=== PATIENT | male | born 1985 | race Hispanic/Latino ===

== ENCOUNTER 2016-09-19 07:48 | Day surgery (SDC) | payer OTHER ==
[2016-09-19] VITALS (9 sets, daily range): BP systolic 124–132; BP diastolic 66–77; PULSE 62–84; RESP 12–16; O2SAT 95–99
[~2016-09-19] VITALS: Ht 165.1 cm; Wt 100.0 kg
[~2016-09-19 07:48] MED LIST: CeFAZolin Inj 2 GM in IV Premix 1 EACH IV ONE; Lactated Ringer's 1,000 ML IV SCH
[2016-09-19] MEDS ORDERED: Dexamethasone 4 mg/mL Inj ONE (07:49)
[2016-09-19] MEDS ORDERED: fentaNYL-PF 50 mCg/mL 2 mL Inj ONE (07:49)
[2016-09-19] MEDS ORDERED: Propofol 10,000 mCg/mL 20 mL Inj ONE (07:49)
[2016-09-19] MEDS ORDERED: MetoCLOpramide 5 mg/mL 2 mL Inj ONE (07:49)
[2016-09-19] MEDS ORDERED: Ondansetron 2 mg/mL 2 mL Inj ONE (07:49)
[2016-09-19] MEDS ORDERED: Lactated Ringer's 1,000 ML IV ONE (08:33)
[2016-09-19 09:00] LABS: Mean Corpuscular Hemoglobin 29.9 pg (27.0-35.0); Mean Corpuscular Volume 89.7 fL (81-100)
[2016-09-19] MEDS ORDERED: Lactated Ringer's 500 ML IV PRN (09:59)
[2016-09-19] MEDS ORDERED: Lactated Ringer's 1,000 ML IV SCH (09:59)
[2016-09-19] MEDS ORDERED: Bupivacaine-MPF 0.25% 30 mL Inj INJ ONE (09:59)
--- NOTE | 2016-09-19 09:59 | PCM.HPANE ---
Patient Data Surgeon Admitting Provider: Attending Provider:Slime Rose MD Primary Care Physician:Levar Other Provider:Anais Bourgeoisingham Anesthesia Reason for Visit Balanitis Ht/WT & BMI Height (Feet): 5 Height (Inches): 5 Weight (Kilograms): 100 Body Mass Index 36.00 Allergies Coded Allergies: No Known Allergies (Unverified , 09/18/16) Past Anesthesia History Anesthesia History: Denies:: Fam Anesthesia Reaction, Fam Malignant Hypertherm Diabetes History Hx Diabetes?: No Medications Home Meds Incl Beta [place]: No No Active Prescriptions or Reported Meds History History of ENT Problems?: No Hx of Heart Problems?: No Cardiovascular History: Denies:: Heart Murmur Hypertension Hx of Respiratory Problem?: Yes Respiratory History: Denies:: Use of C-PAP Machine (SNORES) Hx Neurologic Problems?: No Hx of GI Problems?: No Hx of Problems?: Yes Other Pertinent History: BALANITIS (DURATION 3 YRS)=CURRENT PROBLEM Male Hx: Denies:: Prostate Problems Scrotal Mass Testicular Surgery Skin History: Positive for:: History Skin Disorders? (PENILE SKIN IRRITATION) Denies:: Pressure Ulcers Hx Musculoskeletal Problems?: No Hx of Psycho/Social Problems?: No Hx Surgeries?: No Hx Any Other Health Problems?: No Other History: Denies:: Cancer Endocrine Disease Hospitalization Thyroid Disease Hx Diabetes: No Stop/Bang S-Snoring: Do You Snore Loudly: Yes T-Tired: feel tired, fatigued: No O-Obsered: Observed not breath: No P-Blood Pressure: treated: No B- Body Mass Index > 35 kg/m2: No A- Age over 50: No N- Neck Large Circumference: Yes G- Gender Male: Yes PANCHO Total Score: 3 Risk Assessment Category Category 1A: Patient has history of documented sleep apnea, and HAS NOT received any narcotic, sedative or anesthesia administration during this stay. Category 1B: Patient has history of documented sleep apnea, and HAS received any narcotic , sedative or anesthesia administration during this stay Category 2: Patient has SUSPECTED Obstructive Sleep Apnea, and HAS received any narcotic , sedative or anesthesia administration during this stay. Category 3: Patient has SUSPECTED Obstructive Sleep Apnea and HAS NOT received narcotic, sedative or anesthesia administration during this stay. Category 4: Outpatient in Procedural Areas with known sleep apnea or who screen positive for High Risk via the STOP/BANG questionnaire. Exam Exam Vital Signs Vital Signs Date Time Temp Pulse Resp B/P Pulse Ox O2 Delivery O2 Flow Rate FiO2 09/19/16 08:29 36.6 62 16 130/70 97 Room Air General Appearance: Alert, Oriented X3, Cooperative, No Acute Distress HEENT/AIRWAY: MP 2, Neck Movement (FROM), Mouth Opening (3 FBMO) Lungs: Clear to Auscultation, Normal Air Movement Heart: Exam Unremarkable, Regular Rate/Rhythm, No Murmurs/Rubs/Gallops Meds/Labs/Diagnostics Admission Meds Current Medications Lactated Ringer's (Lr) 1,000 ml @ ud STK-MED ONCE IV Last administered on 09/19t 08:33; Start 09/19/16 at 08:33; Stop 09/19/16 at 08:34; Status DC Labs Test 09/19/16 08:55 Plan Impression Patient chart reviewed, patient interviewed and anesthestic plan with risks, benefits, and alternatives discussed, and informed consent obtained. NPO Status: confirmed before mn ASA Physical Status: ASA2 Mod Systemic Disease Anesthetic Plan: GA Bene/Risks/Altern/Consents: Yes HP Complete Prior to Induction: Yes Geremias Bauman MD Sep 19, 2016 08:57
[2016-09-19] MEDS ORDERED: Bacitracin Ointment Packet TOPICAL ONE (10:00)
[2016-09-19] MEDS ORDERED: fentaNYL-PF 50 mCg/mL 2 mL Inj IVPUSH PRN (10:00)
[2016-09-19] MEDS ORDERED: HYDROmorphone 1 mg/mL Inj IVPUSH PRN (10:00)
[2016-09-19] MEDS ORDERED: Atropine 0.4 mg/mL Inj IVPUSH PRN (10:00)
[2016-09-19] MEDS ORDERED: MetoCLOpramide 5 mg/mL 2 mL Inj IVPUSH PRN (10:00)
[2016-09-19] MEDS ORDERED: hydrALAZINE 20 mg/mL Inj IVPUSH PRN (10:00)
[2016-09-19] MEDS ORDERED: Ondansetron 2 mg/mL 2 mL Inj IVPUSH PRN (10:00)
[2016-09-19] MEDS ORDERED: EPHEDrine Sulfate 50 mg/mL Inj IVPUSH PRN (10:00)
[2016-09-19] MEDS ORDERED: Phenylephrine 10,000 mCg/mL Inj IVPUSH PRN (10:00)
[2016-09-19] MEDS ORDERED: Labetalol 5 mg/mL 4 mL Inj IV PRN (10:00)
[2016-09-19] MEDS ORDERED: oxyCODONE-Acetamin 5-325 mg Tablet PO PRN (10:20)
--- NOTE | 2016-09-19 10:42 | OP ---
[address] [address] OPERATIVE REPORT PATIENT: TERRELL LUNA : 1985 MR#: [id number] ADMIT: 09/19/2016 JOB ID: [id number] DATE OF SURGERY: 09/19/2016 SURGEON: Slime Rose M.D. PREOPERATIVE DIAGNOSIS(ES): Recurrent balanitis/phimosis. POSTOPERATIVE DIAGNOSIS(ES): Recurrent balanitis/phimosis. PROCEDURE: Circumcision. ANESTHESIA: General anesthetic, Dr. Bauman. DESCRIPTION OF PROCEDURE: Under general anesthetic, the patient was placed in the supine position and genitalia prepped and draped in a sterile manner. Using 0.25% Marcaine, a penile block was performed. Foreskin was incised at the mid glans position using a 15 blade. Further dissection with electrocautery. When only the inner foreskin remained, a dorsal slit was performed and the remainder of the foreskin excised leaving a 1 cm cuff. Several small bleeders were cauterized. The skin edges were then reapproximated using interrupted 4-0 chromic. The patient tolerated the procedure well. Estimated blood loss less than 5 cc. The patient left the operating room in good condition under light anesthesia with a compression dressing applied.
--- NOTE | 2016-09-19 11:13 | PCM.ANEP1 ---
Post Anesthesia Phase 1 PACU Phase 1 Assessment Vital Signs Vital Signs Date Time Temp Pulse Resp B/P Pulse Ox O2 Delivery O2 Flow Rate FiO2 09/19/16 11:05 36.8 65 13 126/77 97 Room Air 09/19/16 11:00 66 12 125/77 97 Room Air 09/19/16 10:55 36.6 71 15 128/73 98 Room Air 09/19/16 10:45 70 12 127/68 96 Room Air 09/19/16 10:40 73 13 131/72 95 Room Air 09/19/16 10:35 76 12 132/66 95 Room Air 09/19/16 10:30 75 13 129/68 99 Simple Mask 8 09/19/16 10:25 36.7 84 14 124/71 99 Simple Mask 8 09/19/16 08:29 36.6 62 16 130/70 97 Room Air Anesthetic Administered: GA Level of Alertness: Awake, talking GARIBAY's with Equal Strength: Yes Pain: No Nausea or Vomiting: No Oxygen Delivery: Simple Mask Lungs: Clear to Auscultation, Normal Air Movement Dermatome Level: Full Sensation Geremias Bauman MD Sep 19, 2016 11:13
--- NOTE | 2016-09-19 11:13 | PCM.ANEP2 ---
Post Anesthesia Evaluation ASA/CMS Post Anesthesia VS in Patient's Normal Range?: Yes Resp Stable; Airway Patent?: Yes CV Function & Hydration Stable: Yes Mental Status Recovered?: Yes Pain control Satisfactory?: Yes N/V Control Satisfactory?: Yes Geremias Bauman MD Sep 19, 2016 11:13
== END 2016-09-19 23:59 | disposition home or self-care (01) ==
LOC: SAS 07:48
PROVIDERS: ATTEND Urology
DX: N48.1 Balanitis (principal); N47.1 Phimosis
CPT/HCPCS: 36415; 54161; 80048; 85027; J0690; J1100; J2250; J2405; J2765; J3010; J7120